=== PATIENT | female | born 1975 | race African-American/Black ===

== ENCOUNTER → 2020-01-15 | Outpatient (CLI) | payer OTHER ==
--- NOTE | 2020-01-18 10:03 | Diagnostic Imaging Report ---
EXAM: BONE DXA DUAL ENERGY DATE: 01/15/2020 3:07 PM COMPARISON: None HISTORY: Screening for osteoporosis TECHNIQUE: Dual X-ray Absorptiometry was performed. Bone mineral density (BMD), T-score (young normals), and Z-score (age-matched normals) are reported. QUALITY: The study is technically adequate. FINDINGS: Left hip femoral neck bone mineral density: 0.892 g/cm2, T-score is -0.4, Z-score is -0.1. Left hip total bone mineral density: 0.876 g/cm2, T-score is -1.0, Z-score is -0.9. Lumbar spine total bone mineral density: 1.029 gm/cm2, T-score is -1.1, Z-score is -0.5. IMPRESSION: Bone mineralization by WHO criteria is consistent with osteopenia, the fracture risk is increased. The 10-year probability for major osteoporotic fracture is 1.1% and for a hip fracture is less than 0.1%. The above fracture probability is calculated for an untreated patient. Fracture probably may be lower if the patient has received treatment. All treatment decisions require clinical judgment and consideration of individual patient factors, including patient preferences, comorbidities, previous drug use and risk factors not captured in the FRAX model (e.g. frailty, falls, vitamin D deficiency, increased bone turnover, interval significant decline in BMD). Signed by: Dr. Alexandru Toro M.D. on 01/18/2020 10:00 AM
== END ==
LOC: MAMMO 14:36
PROVIDERS: ATTEND Specialist
DX: Z12.31 Encounter for screening mammogram for malignant neoplasm of breast (principal); Z13.820 Encounter for screening for osteoporosis; Z78.0 Asymptomatic menopausal state
CPT/HCPCS: 77067; 77080

== ENCOUNTER → 2022-03-01 | Outpatient (CLI) | payer BC | LOC: MAMMO 16:50 | PROVIDERS: ATTEND Specialist | DX: Z12.31 Encounter for screening mammogram for malignant neoplasm of breast (principal) | CPT/HCPCS: 77067 ==

== ENCOUNTER → 2024-05-04 | Outpatient (REF) | payer BC | LOC: MAMMO 13:42 | PROVIDERS: ATTEND Specialist | DX: Z12.31 Encounter for screening mammogram for malignant neoplasm of breast (principal) | CPT/HCPCS: 77067 ==